=== PATIENT | male | born 1970 | race Caucasian/White ===

== ENCOUNTER 2022-09-19 22:48 | Emergency (ER) | payer SELFPAY ==
--- NOTE | ~2022-09-19 | CT_ITS ---
EXAMINATION: CT brain wo con INDICATION: Head injury COMPARISON: None TECHNIQUE: Standard unenhanced head CT. The dose-length product (DLP) was 605 mGy-cm. The mA was adju sted according to patient size. Iterative reconstruction technique was employed. FINDINGS: There is no intracranial hemorrhage, acute infarction, or abnormal mass lesion. The ventric les are normal. There is no abnormal mass effect or midline shift. The lovett-white matter differentiat ion is normal. The basal cisterns are patent. The orbits are normal. There is mild mucosal thickening of the paranasal sinuses. IMPRESSION: 1. No acute intracranial abnormality. Reviewed, dictated and finalized at location A.
--- NOTE | ~2022-09-19 | XR_ITS ---
EXAMINATION: XR shoulder LT min 2V INDICATION: Left scapular pain TECHNIQUE: Four views of the left shoulder are submitted. COMPARISON: None FINDINGS: Normal alignment. No fracture. Glenohumeral and acromioclavicular joint spaces are normal. Soft tissues are unremarkable. IMPRESSION: 1. No acute osseous abnormality. Reviewed, dictated and finalized at location A.
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
--- NOTE | ~2022-09-19 | CT_ITS ---
EXAMINATION: CT facial & cervical spine wo DATE: 09/20/2022 INDICATION: Head injury TECHNIQUE: Computed tomography (CT) of the maxillofacial region and cervical spine was performed with out intravenous contrast. The dose-length product (DLP) was 580 mGy-cm. Automated exposure control an d iterative reconstruction technique were employed. COMPARISON: 07/14/2008 FINDINGS: MAXILLOFACIAL CT: There is internal fixation of an old mandibular symphysis fracture. No acute facial fracture is ident ified. The globes and orbits are normal. There is near-complete opacification of the left maxillary s inus with wall thickening of the sinus, consistent with chronic sinusitis. CERVICAL SPINE CT: There are 2 mm of retrolisthesis of C5 on C6. There is moderate loss of intervertebral disc space hei ght at C5-6. The odontoid process is intact. There is no fracture. There is mild facet and uncoverteb ral joint osteoarthritis of the cervical spine. Severe facet and uncovertebral joint osteoarthritis i s noted at C5-6. There is moderate emphysema of the visualized lung apices. IMPRESSION: 1. No acute facial fracture. 2. Moderate cervical spondylosis at C5-6 without acute abnormality of the cervical spine. 3. Chronic left maxillary sinusitis. Reviewed, dictated and finalized at location A. IMPRESSION: 1. No acute facial fracture. 2. Moderate cervical spondylosis at C5-6 without acute abnormality of the cervi kay spine. 3. Chronic left maxillary sinusitis.
[2022-09-19 22:51] VITALS: BP 156/99; PULSE 106; RESP 20; O2SAT 100
--- NOTE | 2022-09-19 23:41 | ECG_ITS ---
Measurements Intervals [place] Rate: 97 P: 65 KS: 125 QRS: 80 QRSD: 78 T: 75 QT: 320 QTc: 407 Interpretive Statements SINUS RHYTHM POSSIBLE LEFT ATRIAL ENLARGEMENT [-0.1mV P WAVE IN V1/V2] POSSIBLE RIGHT VENTRICULAR CONDUCTION DELAY [RSR (QR) IN V1/V2] NO PREVIOUS ECG AVAILABLE FOR COMPARISON Electronically Signed On 09-21-2022 13:38:18 CDT by Inés Bhatia M.D.
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
[2022-09-20 00:01] VITALS: PULSE 100; RESP 18; O2SAT 97
[2022-09-20] MEDS: ONDANSETRON INJ 4 MG/2 ML VIAL IV PUSH (00:02)
[2022-09-20] MEDS: HYDROmorphone HCL INJ (*CRX) 1 MG/ML SYR 0.5 MG IV PUSH (00:03)
[2022-09-20] MEDS: TETANUS,DIPHTHERIA,AC PERTUSSIS ADULT (0.5 ML) BOOSTRIX IM (00:12)
[2022-09-20 00:29] LABS: Basophils Absolute Auto 0.1 K/mm3 (0.0-0.1); Basophils Percent Auto 0.5 % (0.2-1.2); Eosinophils Absolute Auto 0.2 K/mm3 (0-0.3); Eosinophils Percent Auto 1.6 % (0-4.4); Hematocrit 48.8 % (42.0-52.0); Hemoglobin 16.6 g/dL (14.0-18.0); Immature Granulocyte Absolute 0.29 K/mm3 (0.00-0.031); Immature Granulocyte Percent A 2.2 % (0-0.5); Lymphocytes Absolute Auto 4.89 K/mm3 (0.9-3.2); Lymphocytes Percent Auto 37.8 % (18.3-44.2); Mean Corpuscular Volume 88.1 fl (80-100); Mean Platelet Volume 9.6 fl (7.4-10.4); Monocytes Absolute Auto 0.8 K/mm3 (0.1-0.6); Monocytes Percent Auto 5.8 % (2.6-8.5); Neutrophils Absolute Auto 6.7 K/mm3 (1.3-6.7); Neutrophils Percent Auto 52.1 % (45.5-73.1); Platelet Count Result 410 k/mm3 (150-375); Red Blood Count 5.54 M/mm3 (4.6-6.20); Red Cell Distribution Width 12.9 % (11.5-14.5); White Blood Count 12.9 K/mm3 (4.5-10.0)
--- NOTE | 2022-09-20 17:00 | PC.NURSE ---
See downtime documentation for 09/20 after 0045am.
[2022-09-21 07:08] LABS: Prothrombin Time 14.5 Seconds (11.1-14.7)
[2022-09-21 07:09] LABS: INR 1.1; Partial Thromboplastin Time 27.7 SECONDS (22.3-36.8)
[2022-09-21 17:03] LABS: Troponin I < 0.012 ng/mL (0.000-0.034)
[2022-09-21 20:26] LABS: Alanine Aminotransferase 95 U/L (6-50); Albumin Level 4.7 g/dL (3.5-5.1); Alkaline Phosphatase 87 U/L (38-126); Anion Gap 13 mmol/L (8-16); Aspartate Amino Transferase 149 U/L (17-59); Bilirubin,Total 0.4 mg/dL (0.2-1.3); Blood Urea Nitrogen 13 mg/dL (9-20); Calcium 9.2 mg/dL (8.4-10.2); Carbon Dioxide 29 mmol/L (22-30); Chloride 102 mmol/L (98-107); Estimated Glomerular Filt Rate > 60; Glucose 117 mg/dL (65-110); Lipase 110 U/L (23-300); Potassium 4.2 mmol/L (3.4-5.0); Sodium 144 mmol/L (137-145)
== END 2022-09-20 04:25 | disposition left against medical advice (07) ==
PROVIDERS: Emergency Provider Physician Assistant; PCP Family Medicine
DX: S22.42XA Multiple fractures of ribs, left side, initial encounter for closed fracture (principal); Z23 Encounter for immunization; Z87.891 Personal history of nicotine dependence; M47.812 Spondylosis without myelopathy or radiculopathy, cervical region; J32.0 Chronic maxillary sinusitis; R94.31 Abnormal electrocardiogram [ECG] [EKG]; V86.55XA Driver of 3- or 4- wheeled all-terrain vehicle (ATV) injured in nontraffic accident, initial encounter
CPT/HCPCS: 36415; 70450; 70486; 71260; 72125; 73030; 74177; 80053; 83690; 84484; 85025; 85610; 85730; 90471; 90714; 90715; 93005; 96374; 96375; 99284; A9270; J1170; J2270; J2405; Q9967

== ENCOUNTER 2022-11-11 17:13 | Emergency (ER) | payer SELFPAY ==
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
[2022-11-11 17:23] VITALS: BP 128/92; PULSE 90; RESP 18; TEMP 36.7; O2SAT 96
== END 2022-11-11 18:00 | disposition home or self-care (01) ==
PROVIDERS: Emergency Provider Nurse Practitioner Family; PCP Family Medicine
DX: S51.011A Laceration without foreign body of right elbow, initial encounter (principal); W01.0XXA Fall on same level from slipping, tripping and stumbling without subsequent striking against object, initial encounter; Z87.891 Personal history of nicotine dependence
CPT/HCPCS: 12001; 99212; G0463